=== PATIENT | male | born 1965 | race Caucasian/White ===

== ENCOUNTER 2020-11-25 11:20 | Inpatient (IN) | payer OTHER ==
[~2020-11-25] VITALS: Ht 177.8 cm; Wt 87.1 kg
--- NOTE | ~2020-11-25 | EMS ---
[address] [address] EMS Patient Care Report Name: EMILI SHARP Room #: 437-P ADM IN M.R.#: [id number] Admission: 11/25/20 Attend Phys: Josef Johnston MD Discharge: Date of : 65 Report #: [id number] THIS REPORT FOR: //name// Report Transmitted: 11/25/2020 17:54 EMS Care Summary [place], [place]/[facility] Incident [id number] @ 11/25/2020 10:47 Incident Location [address] [place] [address] Patient EMILI SHARP Male, 55 Years 1965 Patient Address [address] [place], [place] [id number] Patient History Hypertension (HTN),Substance Abuse,Hyperlipidemia,Gastro-Esophageal Reflux Disease (GERD),Schizoaffective Disorder, Patient Allergies No known allergies, Patient Medications Propranolol, Losartan, Atorvastatin, Olanzapine, Invega, Risperdal, Eliquis, Chief Complaint skin infection Disposition Transported No Lights/[place] [facility] Reason Sick Person Transported To [facility] Narrative Responded to non emergency sick call at [facility]. Upon arriving on scene found patient sitting in chair with skin infections appearing on both hands. Assisted the patient with walking to the cot. [place] [address] EMS Patient Care Report Name: EMILI SHARP Room #: 437-P ADM IN Dee#: [id number] Admission: 11/25/20 Attend Phys: Josef Johnston MD Discharge: Date of : 65 Report #: [id number] cot with seat belts and with guard rails up and in the locked position. Vitals established and assessment formed. Called into [facility] with an eta of 10 min. Transported to [facility]. Patient was unchanged during transit. Patient was ambulatory and walked into the hospital unasssisted. Placed in hospital bed with guard rails up and in locked position. Patient responsibility and paperwork transferred to nurse. Initial Vitals @11:09P: 82,BP: 110/82,CO: 4,SpO2: 95, @11:01P: 85,R: 16,BP: 134/90,Pain: 0/10,GCS: 15,Revised Trauma: 12, Assessments @10:58MENTAL:Person Oriented,Time Oriented,Event Oriented,Place Oriented,SKIN:Other,HEENT:LUNG SOUNDS:ABDOMEN:PELVIS//GI:EXTREMITIES:PULSE:Radial: 2+ Normal,NEURO: Impression Skin infection Procedures @10:58BLS AssessmentResponse: Unchanged Timeline 10:45,Call Received 10:45,Dispatch Notified 10:47,Dispatched 10:48,En Route 10:55,On Scene 10:57,At Patient 10:58,BLS Assessment,Response: Unchanged 11:01,BP: 134/90 M,PULSE: 85,RR: 16 R,SPO2: Ox,ETCO2: ,BG: ,PAIN: 0,GCS: 15, 11:08,Depart Scene 11:09,BP: 110/82 M,PULSE: 82,RR: R,SPO2: 95 Ox,ETCO2: ,BG: ,PAIN: ,GCS: , 11:15,At Destination 11:41,Call Closed Disclaimer v1.1 Copyright 2020 [employer] This EMS Care Summary contains data elements from the applicable legal record (which may be displayed differently). It is designed to provide pertinent information for the following purposes: continuity of care, clinical quality, and state data reporting. The complete legal record is available to ED staff and administrators of the receiving hospital in [employer] Patient Tracker. All data is provided "as is."
[~2020-11-25 11:20] MED LIST: CLEOCIN HCL150 M1 PO
[2020-11-25 13:52] LABS: ABSOLUTE NEUTROPHILS 7.5 thou/uL (1.4-8.2); BASOPHILS 0.4 % (0.0-2.0); EOSINOPHILS 1.6 % (0.0-3.0); HEMATOCRIT 41.2 % (42.0-52.0); HEMOGLOBIN 14.5 gm/dL (14.0-18.0); LYMPHOCYTES 24.8 % (24.0-44.0); MCH 33.6 pg (26.0-34.0); MCHC 35.3 g/dL (28.0-37.0); MCV 95.2 fL (80.0-100.0); MONOCYTES 10.6 % (1.0-8.0); PLATELET COUNT 261 thou/uL (150-400); POLYS 62.6 % (36.0-66.0); RBC 4.33 mil/uL (4.50-6.00); RDW 12.3 % (10.5-14.5)
[2020-11-25 14:16] LABS: CALCIUM 9.2 mg/dL (8.5-10.1); POTASSIUM 4.1 mmol/L (3.5-5.1)
[2020-11-25 14:20] LABS: ALBUMIN 3.4 g/dL (3.4-5.0); TOTAL BILIRUBIN 0.2 mg/dL (0.2-1.0); TOTAL PROTEIN 7.6 g/dL (6.4-8.2)
[2020-11-25 15:11] VITALS: BP 121/71
[2020-11-25] MEDS ORDERED: ASA81BEC PO (15:30)
[2020-11-25] MEDS ORDERED: LIPITOR40 MG PO (15:31)
[2020-11-25] MEDS ORDERED: [UNRECOGNIZED DRUG - OTHER] BUCCAL (15:32)
[2020-11-25] MEDS ORDERED: ELIQUIS5 MG PO (15:33)
[2020-11-25] MEDS ORDERED: INVEGA SUS234 MG/1.5 IM (15:34)
[2020-11-25] MEDS ORDERED: FLONASE 0.05%50 MCG NARES (15:34)
[2020-11-25] MEDS ORDERED: IBUPROFEN 600600 M1 PO (15:34)
[2020-11-25] MEDS ORDERED: COZAAR 25 MG TA25 M2 PO (15:35)
[2020-11-25] MEDS ORDERED: PEPCID20 MG PO (15:35)
[2020-11-25] MEDS ORDERED: OLANZAPINE10 M1 PO (15:35)
[2020-11-25] MEDS ORDERED: PROPRANOLOL 20M20 M1 PO (15:36)
[2020-11-25] MEDS ORDERED: STRATTERA40 MG PO (15:36)
[2020-11-25] MEDS ORDERED: RISPERDAL2 MG PO (15:36)
[2020-11-25 15:43] VITALS: BP 144/93
--- NOTE | 2020-11-25 18:30 | NUR ---
PT RECEIVED FROM THE ER AT 1600 ALERT AND IN NO ACUTE DISTRESS. DENIES PAIN. SORES ON LT THUMB, AND RT HAND, 3&4TH FINGERS. IV FLUIDS INFUSING AND VANCO STARTED AFTER RECEIVED DOSE FROM PHARMACY. PT EATING AND DRINKING WELL. VOIDED LARGE AMT URINE. DR. BURGER HERE TO SEE PT IN CONSULT. WOUND CARE CONSULT FOR TOMORROW.
[2020-11-25 19:04] VITALS: BP 139/89
--- NOTE | 2020-11-26 02:18 | NUR ---
ASSESSED AT START OF SHIFT. PT A&OX4 DENIES PAIN ON ASSEESSMENT. IV INTACT AND FLUIDS INFUSING. ABX GIVEN. PT UP AD ASHLEE TO THE BATHROOM. CELLULITIS IN UPPER EXT WRAPPED. DRESSING C/D/I. CALL LIGHT AT REACH. PT RESTING WELL WILL CONT WITH POC TILL EOS.
[2020-11-26 04:32] VITALS: BP 123/83
[2020-11-26 07:00] VITALS: BP 127/88
--- NOTE | 2020-11-26 09:36 | NUR ---
Assumed care of pt at 0700. Pt a&ox4. IVF and IV antibiotics infusing. Denies pain. Up ad eloise. Pt does not have any complaints at this time. Call light within reach. Fall precautions in place. Will continue to monitor.
--- NOTE | 2020-11-26 10:29 | NUR ---
ORDERS RECEIVED FOR OT EVAL AND TREAT, CHART REVIEW REVEALS PT. LIVES IN LTC AFTER INPATIENT PSYCH STAY AT A HOSPITAL IN [place]. PT. REPORTS IS ABLE TO COMPLETE ALL ADLS INDEP. NURSING REPORTS PT. IS UP AD ASHLEE. PT. REPORTS NO OT NEEDS AT THIS TIME. OT SIGNING OFF PER PT. REQUEST.
--- NOTE | 2020-11-26 10:36 | NUR ---
ORDERS RECEIVED FOR EVAL AND TREAT. SPOKE WITH Pt WHO STATES HE IS UP AD ASHLEE WITHOUT DIFFICULTY AND DENIES ANY ISSUES WITH BALANCE, MOBILITY OR STRENGTH. Pt DECLINING FORMAL P.T. EVAL AT THIS TIME
[2020-11-26 11:39] LABS: AMP/METHAMP Negative (Negative); BARBITURATES Negative (Negative); BENZODIAZEPINES Negative (Negative); COCAINE Negative (Negative); METHADONE Negative (Negative); OPIATES Negative (Negative); PCP Negative (Negative)
--- NOTE | 2020-11-26 12:44 | NUR ---
on-going assessment: CM REVIEWED CHART AND SPOKE WITH PATIENT AT THE BEDSIDE. PT WAS ADMITTED DUE TO CELLULITIS OF RIGHT FINGER. PT IS CURRENTLY ON IV ANBX PENDING CULTURES. THERE IS ALSO DISCUSSION ABOUT POSSIBLE NEED OF I&D. 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 PT WAS JUST ALSO RECENTLY FROM A FACILITY CALLED [facility] IN [place], [place] AND JUST WENT TO [facility] HERE RECENTLY. SAMRA SPOKE WITH GONZÁLEZ IN ADMISSIONS AND FAXED UPDATED CLINICAL TO THE FACILITY. SAMRA ALSO SPOKE WITH PATIENTS BROTHER/GUARDIAN RODRIGUE [phone] WHO REPORTS THAT PLANS WILL BE FOR PATIENT TO RETURN TO [facility] ONCE MEDICALLY STABLE. CONTACT FOR GONZÁLEZ IN ADMISSIONS AT [facility] IF NEEDED IS [phone]. [facility]:[phone], FAX:[phone]
--- NOTE | 2020-11-26 14:19 | HC ---
[facility] [place] [address] [place] [address] CONSULTATION Name: EMILI SHARP Room #: 437-P ADM IN M.R.#: [id number] Admission: 11/25/20 Attend Phys: Josef Johnston MD Discharge: Date of : 65 Report #: [id number] THIS REPORT FOR: cc: MITUL OLIVIER MD Physician not on staff Oswaldo Ko MD ~ DOC #: [id number] Oswaldo Ko MD DATE OF SERVICE: 11/25/2020 INFECTIOUS DISEASE CONSULTATION REASON FOR CONSULTATION: I was asked to evaluate concerning soft tissue infection of both hands. HISTORY OF PRESENT ILLNESS: The patient is a 55-year-old who presents to the Emergency Room from his [facility] center with wounds to both hands with drainage and tenderness. He noticed this occurred about a week ago. He had a small ulcer and wound to the dorsum of his left foot. This began to heal. Then, he developed lesions to the dorsum of his left first finger along with the right second and fifth fingers. No fever, chills or sweats. He has a moderate amount of drainage. These lesions have progressed and therefore presents for evaluation. No history of diabetes. He is a smoker of cigarettes. Denies any previous history of staph infections. He does rub his fingers frequently. At some point, he was evaluated in the past with infections involving his hands, but the patient did not elaborate on this. REVIEW OF SYSTEMS: A 14-point review of system was negative other than what has been described above. PAST MEDICAL HISTORY: Bipolar disorder, schizophrenia. ALLERGIES: HALOPERIDOL. MEDICATIONS: As noted on his MAR including clindamycin. FAMILY HISTORY: Bipolar disorder. SOCIAL HISTORY: Smoker of cigarettes, previously used methamphetamines and marijuana. Does use alcohol. PHYSICAL EXAMINATION: GENERAL: Afebrile, hemodynamically stable, alert and cooperative and pleasant, in no acute distress. EXTREMITIES: Both hands with erythematous, indurated wounds with purulent drainage over the dorsum of his left thumb right second finger and right fifth [facility] [address] [place] [address] CONSULTATION Name: LILAEMILI E Room #: 437-P [facility] IN .R.#: [id number] Admission: 11/25/20 Attend Phys: Josef Johnston MD Discharge: Date of : 65 Report #: [id number] finger. Did not appear to involve his joints and he had reasonable range of motion. No erythema extending up his forearm. Range of motion in the wrist was normal. Sensation in his fingers to fine touch within normal limits. Capillary refill within normal limits. Pulses in the wrist within normal limits. Strength in the hand within normal limits. HEENT: Eyes without scleral icterus. Mouth without mucositis. NECK: Supple. LUNGS: Clear. HEART: Regular, without murmur. ABDOMEN: Soft and nontender with no hepatosplenomegaly or mass. Laboratory reviewed. Microbiology reviewed. Cultures are pending. X-rays reviewed. IMPRESSION: Soft tissue abscesses and wounds to both hands that appear to involve the soft tissues. At this point, does not appear to involve the joints or bone. I am suspecting Staph aureus, possibly MRSA. The patient is a smoker of cigarettes. He does have underlying bipolar disorder and schizophrenia. RECOMMENDATION: Agree with antibiotic coverage with vancomycin, pending culture results. Would recommend further debridement of these wounds. Once stabilized, then proceed with outpatient care. Discontinue tobacco use. MD YANI SingerG/ANDRE <ELECTRONICALLY SIGNED> By: Oswaldo Ko MD 11/26/20 1419 [id number] Oswaldo Ko MD /nt
[2020-11-26 16:05] VITALS: BP 141/87
[2020-11-26 20:20] VITALS: BP 132/88
--- NOTE | 2020-11-27 00:49 | NUR ---
ASSESSED AT START OF SHIFT. PT RESTING WELL IN BED. A&OX4 DENIES PAIN ON ASSESSMENT. IV INTACT FLUIDS AND ABX INFUSING. URINAL AT BEDSIDE PT UP AD ASHLEE. STEADY GAIT. WOUND DRESSING C/D/I CALL LIGHT AT REACH AND NO FURTHER SIGNS OF DISCOMFORT.
[2020-11-27 03:10] VITALS: BP 152/97
[2020-11-27 07:50] VITALS: BP 128/93
--- NOTE | 2020-11-27 09:39 | NUR ---
Assumed care of pt at 0700. Pt a&ox4. IV fluids and IV antibiotics infusing. Dressings changed. Aerobic/anerobic culture send to lab yesterday from rt index finger. Denies pain. Call light within reach. Will continue to monitor.
[2020-11-27 16:26] VITALS: BP 128/87
[2020-11-27 19:41] VITALS: BP 130/95
--- NOTE | 2020-11-28 03:32 | NUR ---
ASSESSED AT START OF SHIFT. PT RESTING IN BED. IV INTACT AND FLUIDS INFUSING. ANTIBIOTICS GIVEN. URINAL AT BEDSIDE. WOUND DRESSING C/D/I. CALL LLIGHT AT REACH WILL CONT TO MONITOR.
[2020-11-28 08:54] VITALS: BP 140/95
--- NOTE | 2020-11-28 09:40 | NUR ---
Assumed care of pt at 0700. Pt a&ox4. Denies pain. IVF and IV antibiotics infusing. Up ad eloise. Dressings changed. No complaints at this time. Call light within reach. Will continue to monitor.
[2020-11-28 15:45] VITALS: BP 138/93
[2020-11-28 19:35] VITALS: BP 148/96
[2020-11-28 19:45] VITALS: BP 148/96
--- NOTE | 2020-11-29 02:50 | NUR ---
UPON SHIFT ASSESSMENT, PT AOX4 WITH LETHARGY. PT REPORTS 3/10 HEADACHE PAIN. PT RECEIVING PRN PO APAP Q4HR. PT DENIES SOB WHILE ON ROOM AIR. PT TOLERATING PO INTAKE OF FLUIDS AND REGULAR DIET WITHOUT ISSUE. PT WITHOUT NAUSEA OR EMESIS. PT AMBULATING INDEPENDENTLY IN ROOM AND TO BATHROOM, INTERMITTENTLY USING URINAL. PT RESTING IN BED THROUGHOUT SHIFT, FREQUENT REPOSITIONING ENCOURAGED WHILE IN BED, PT NOTED TO SHIFT INDEPENDENTLY. SENSATION INTACT, CAPILLARY REFILL LESS THAN 3SEC, PERIPHERAL PULSES PALPABLE IN ALL EXTREMITIES. DRESSINGS TO BOTH HANDS CLEAN, DRY, AND INTACT- PT REFUSING HS WOUND CARE. PT ENCOURAGED TO NOTIFY STAFF FOR ALL NEEDS, CALL LIGHT WITHIN REACH, BED LOCKED IN LOWEST POSITION, FREQUENT MONITORING WILL CONTINUE.
[2020-11-29 09:09] VITALS: BP 136/98
--- NOTE | 2020-11-29 16:07 | NUR ---
PATEIENT ALERT AND ORINTED X4, ON ROOM AIR, DRESSING CHANGED AFTER WOUND CARE SEEN PATIENT, UP AD ASHLEE IN ROOM, VOIDS PER URINAL, DENIES ANY PAIN OR NAUSEA, VITAL SIGNS STABLE, AND AFBRIELE. CALL LIGHT WITH IN REACH, WILL CONTINUE TO MONTIOR.
[2020-11-29 18:02] VITALS: BP 122/91
[2020-11-29 19:03] VITALS: BP 136/95
--- NOTE | 2020-11-30 04:25 | NUR ---
ASSESSED AT START OF SHIFT. PT A&OX4 DENIES PAIN, N&V. IV INTACT FLUIDS AND ABX GIVEN. WOUND DRESSING DONE. PT VOIDS VIA URINAL NO FURTHER SIGNS OF DISCOMFORT WILL CONT TO MONITOR.
[2020-11-30 04:27] VITALS: BP 144/87
[2020-11-30 08:01] VITALS: BP 128/86
--- NOTE | 2020-11-30 11:44 | NUR ---
ON-GOING ASSESSMENT: CM REVIEWED CHART AND SPOKE WITH ATTENDING WHO REPORTS PT IS PROGRESSING TOWARDS GOALS AND LIKELY DISCHARGE BACK TO FACILITY LTC TOMORROW. CM NOTIFIED RAEANN IN ADMISSIONS AT [facility]. CM ALSO FAXED UPDATED CLINICAL TO [facility]. CM ALSO SPOKE WITH PATIENTS LEGAL GUARDIAN/BROTHER RODRIGUE [phone] TO NOTIFY HIM AND HE IS AGREEABLE WITH PLAN. CM WILL CONTINUE TO FOLLOW TO ASSIST NEEDED.
[2020-11-30 15:29] VITALS: BP 128/81
--- NOTE | 2020-11-30 16:04 | NUR ---
PATIENT ALERT AND ORINTED X4, ON ROOM AIR, NEW 20G IV PLACED IN RT FOREARM, TOLERATING DIET WELL, DENIES ANY PAIN, UP AD ASHLEE, VOID PER URINAL, DRESSING CHANGED, VITAL SIGNS STABLE, AND AFBRIELE. CALL LIGHT WITH IN REACH, WILL CONTINUE TO MONIOR.
[2020-11-30 19:08] VITALS: BP 116/63
--- NOTE | 2020-12-01 03:31 | NUR ---
ASSESSED AT START OF SHIFT. PT RESTING IN BED. IV INTACT AND ABX INFUSING. DENIES PAIN, N/V. URINAL BY BEDSIDE. NO FURTHER SIGNS OF DISCOMFORT. WOUND DRESSING C/D/I WILL CONT TO MONITOR.
[2020-12-01 04:17] VITALS: BP 125/82
[2020-12-01 08:12] VITALS: BP 129/92
[2020-12-01] MEDS ORDERED: BACTRIM DS TAB1 EAC1 PO (11:07)
--- NOTE | 2020-12-01 12:01 | NUR ---
ON-GOING ASSESSMENT: CM REVIEWED CHART AND SPOKE WITH PATIENT AT THE BEDSIDE. PT HAS ORDERS TO DISCHARGE BACK TO HIS FACILITY [facility] TODAY. CM NOTIFIED PATIENTS BROTHER/ GUARDIAN EBONY OF DISCHARGE AND HE IS AGREEABLE WITH PLAN. PT NOTIFIED GONZÁLEZ SCHMIDT AT [facility] OF DISCHARGE AND FAXED CLINICAL TO FACILITY AND CONFIRMED THEY RECEIVED IT. CHART COPY WAS ORDERED. GONZÁLEZ AT [facility] STATING THEY DO NOT PROVIDE TRANSPORT AND CM WILL HAVE TO ARRANGE. CM NOTIFIED CM DIRECTOR AND TRANSPORTATION CAN BE VOUCHERED. PTS GUARDIAN IS AGREEABLE WITH CM ARRANGING TRANSPORT THROUGH [facility]. CM CONTACTED [facility] AND TRANSPORTATION HAS BEEN ARRANGED FOR [phone]. PTS GUARDIAN AWARE WELL BEDSIDE RN WHO HAS THE NUMBER FOR REPORT.
--- NOTE | 2020-12-01 15:41 | NUR ---
RN WAS ABLE TO GIVE REPORT TO MANUELA ERIK AT 1540 AND PATIENT LEFT HOSPITAL AT 1530. RN PREVIOUSLY CALLED 4X TIMES TO GIVE REPORT AT 1311 UNABLE TO TALK TO ANYONE EVERYTIME RN WAS TRANSFERED.
--- NOTE | 2020-12-03 08:51 | HC ---
[facility] [address] [place] [address] CONSULTATION Name: EMILI SHARP Room #: 437-P [facility] IN M.R.#: [id number] Admission: 11/25/20 Attend Phys: Josef Johnston MD Discharge: 12/01/20 Date of : 65 Report #: [id number] THIS REPORT FOR: cc: MITUL OLIVIER MD Physician not on staff Chicho Lehman MD ~ DOC #: [id number] Chicho Lehman MD WOUND CARE CONSULTATION PERSONAL PHYSICIAN: None on staff. CHIEF COMPLAINT: Bilateral hand cellulitis with open wounds. HISTORY OF PRESENT ILLNESS: This is a 55-year-old white male who presented through the Emergency Department for evaluation of ulcerations to both hands. The patient states just in the past week, he has been noticing that he was having some itching mainly to his left thumb, which he felt was secondary to possibly something he got when he was doing some gardening. The patient denies any associated puncture wounds during the gardening. The patient states that he did develop a small blister over the area of the left thumb. At that time he tried to rupture it and then within the next several days he started having increased erythema, warmth and drainage. The patient states he then noticed he started having itching on his right fifth and second digits and then developed ulcerations and bullous type lesions on those as well. The patient denies any other trauma to the hand itself. The patient denies any fevers or chills. The patient once again denies any other ulcerations or wounds. PAST MEDICAL HISTORY: Significant for bipolar disease, schizophrenia, gastroesophageal reflux disease, hypertension. CURRENT MEDICATIONS: Multiple, I reviewed the patient's medication list. DRUG ALLERGIES: HALDOL. SOCIAL HISTORY: The patient smokes 1 pack of cigarettes daily, admits to both methamphetamine and marijuana use. Drinks alcohol weekly. Currently is living in a long-term care facility. FAMILY HISTORY: Not pertinent to current medical condition. REVIEW OF SYSTEMS: CONSTITUTIONAL: The patient denies fevers or chills. NEUROLOGIC: The patient denies numbness, tingling, weakness in arms or legs. EYES: No complaints. [facility] [address] [place] [address] CONSULTATION Name: EMILI SHARP Room #: 437-P [facility] IN M.R.#: [id number] Admission: 11/25/20 Attend Phys: Josef Johnston MD Discharge: 12/01/20 Date of : 65 Report #: [id number] EARS, NOSE AND THROAT: No complaints. CARDIAC: The patient denies chest pain, palpitations or peripheral edema. RESPIRATORY: The patient denies shortness of breath, cough or wheezes. GASTROINTESTINAL: The patient denies nausea, vomiting, abdominal pain. GENITOURINARY: The patient denies urgency or frequency. MUSCULOSKELETAL: The patient denies musculoskeletal pain. SKIN: The patient has open lesions on the left thumb right second and fifth digit. PHYSICAL EXAMINATION: VITAL SIGNS: Temperature 36.7, pulse 71, respirations 16, BP 127/88. GENERAL: This is an alert and oriented x3 pleasant white male, who is in no acute distress. HEENT: Normocephalic, atraumatic. Mucous membranes are dry. Pupils are round. Sclerae white. NECK: Without JVD. LUNGS: Clear. HEART: Regular. ABDOMEN: Soft and nontender. EXTREMITIES: The patient moves all extremities without difficulty. Evaluation of the bilateral upper extremities reveals 2+ pulses. Evaluation of the left thumb reveals an open ulceration which is erythematous, tender to touch with purulent drainage, spontaneously seeping from the area. The patient has full range of motion of the thumb itself. There is increased erythema, warmth of the hand and thumb; however, minimal tenderness. Evaluation of right hand reveals an ulceration at the base of the 2nd digit with an ulcerated lesion which is erythematous with a spontaneous pus drainage without signs of fluctuance. The patient has full range of motion of that digit. Evaluation of the right fifth digit reveals a pustular lesion, which is also draining with erythema, but full range of motion of the fifth digit. On either hand, there are no signs of any palmar involvement. These were all in the dorsal region. NEUROLOGIC: Cranial nerves II-XII are grossly intact. Motor and sensory are grossly intact. LABORATORY DATA: White count 12.0, hemoglobin 14.5. Sed rate 42, BUN 16, creatinine 1.0. Albumin 3.4. Sed rate 44.7. X-ray of the bilateral hands reveals no evidence for osteomyelitis or fracture. IMPRESSION: 1. Bullous lesions to the left thumb right second and fifth digits with associated cellulitis, unknown etiology. 2. Bipolar and schizophrenia. 3. Hypertension. 4. Hyperlipidemia. 5. Gastroesophageal reflux disease. [address] [address] CONSULTATION Name: EMILI SHARP Room #: 437-P [facility] IN M.R.#: [id number] Admission: 11/25/20 Attend Phys: Josef Johnston MD Discharge: 12/01/20 Date of : 65 Report #: [id number] 6. Tobacco abuse. 7. Alcohol abuse. 8. Polysubstance abuse. PLAN: At this time, we will start gentamicin, Xeroform, Kerlix tape daily to the open wounds. Wound culture has been obtained. Infectious disease will monitor the IV antibiotics. We will continue all his home medicines at this time. Cessation on smoking and tobacco use was provided. We will continue all other current medications. Appreciate ability to consult. MD DAFNE Romeo/ADITI <ELECTRONICALLY SIGNED> By: Chicho Lehman MD 12/03/20 0851 1330 [id number] Chicho Lehman MD /nt
== END 2020-12-01 15:26 | DRG 603 ==
LOC: ER 11:20 → EROBS 15:18 → 4S 15:18
PROVIDERS: Nurse Practitioner; ADMIT Internal Medicine; ATTEND Internal Medicine
DX: L03.011 Cellulitis of right finger (principal); L02.512 Cutaneous abscess of left hand; L02.511 Cutaneous abscess of right hand; F31.9 Bipolar disorder, unspecified; F12.90 Cannabis use, unspecified, uncomplicated; I10 Essential (primary) hypertension; K21.9 Gastro-esophageal reflux disease without esophagitis; F20.9 Schizophrenia, unspecified; E78.5 Hyperlipidemia, unspecified; F19.10 Other psychoactive substance abuse, uncomplicated; F10.10 Alcohol abuse, uncomplicated; F17.210 Nicotine dependence, cigarettes, uncomplicated; L03.012 Cellulitis of left finger; B95.62 Methicillin resistant Staphylococcus aureus infection as the cause of diseases classified elsewhere; Z71.6 Tobacco abuse counseling; Z88.8 Allergy status to other drugs, medicaments and biological substances; Z81.8 Family history of other mental and behavioral disorders; Z79.82 Long term (current) use of aspirin; Z79.899 Other long term (current) drug therapy; Z71.41 Alcohol abuse counseling and surveillance of alcoholic
CPT/HCPCS: 10102